=== PATIENT | male | born 1930 | race Caucasian/White ===

== ENCOUNTER 2016-09-26 12:21 | Day surgery (SDC) | payer OTHER, BC ==
[~2016-09-26] VITALS: Ht 177.8 cm; Wt 99.8 kg
[~2016-09-26 12:21] MED LIST: COUMADIN2 MG PO; FLOMAX0.4 MG PO; GLUCOTROL XL5 MG PO; JANUVIA25 MG PO; NAMENDA XR28 MG PO; NEURONTIN600 MG PO; PRILOSEC20 MG PO; PROAMATINE5 MG PO; TOPROL XL25 MG PO; VITAMIN B COMP1 EACH PO; ZESTRIL5 MG PO; ZOCOR40 MG PO
[2016-09-26 13:14] LABS: POINT-OF-CARE METER ID UU13113696
[2016-09-26 14:16] LABS: METH RESISTANT S AUREUS PCR ND (NEGATIVE)
== END 2016-09-26 16:19 | disposition home or self-care (01) ==
LOC: CATH 12:21
PROVIDERS: Internal Medicine Cardiovascular Disease
PROC: 0JH637Z Insertion of Cardiac Resynchronization Pacemaker Pulse Generator into Chest Subcutaneous Tissue and Fascia, Percutaneous Approach (ICD-10-PCS; principal; 2016-09-26)
DX: Z45.010 Encounter for checking and testing of cardiac pacemaker pulse generator [battery] (principal); E78.5 Hyperlipidemia, unspecified; I25.10 Atherosclerotic heart disease of native coronary artery without angina pectoris; I49.5 Sick sinus syndrome; I48.91 Unspecified atrial fibrillation; I10 Essential (primary) hypertension; E11.9 Type 2 diabetes mellitus without complications; Z79.84 Long term (current) use of oral hypoglycemic drugs
CPT/HCPCS: 82948; 87641; C1786; J0690; J1200; J2250; J3010; S0020